=== PATIENT | male | born 1965 | race Caucasian/White ===

== ENCOUNTER 2020-02-04 05:33 | Outpatient (RCR) | payer OTHER ==
[2020-02-04] MEDS ORDERED: CAND32TA8 PO (10:24)
[2020-02-04] MEDS ORDERED: DLT90CCR PO (10:24)
[2020-02-04] MEDS ORDERED: ATOR80TA76 PO (10:24)
== END 2020-02-06 11:38 | disposition home or self-care (01) ==
LOC: PREOP 05:33
PROVIDERS: ATTEND Internal Medicine
DX: Z01.818 Encounter for other preprocedural examination (principal); Z20.828 Contact with and (suspected) exposure to other viral communicable diseases
CPT/HCPCS: 87635

== ENCOUNTER 2020-02-07 07:51 | Day surgery (SDC) | payer OTHER ==
--- NOTE | 2020-01-16 17:06 | HISTORY AND PHYSICAL ---
DATE OF SERVICE: COLONOSCOPY HISTORY AND PHYSICAL HISTORY OF PRESENT ILLNESS: The patient is a 54-year-old white male, who presented for yearly wellness evaluation. Upon report it is noted that his mother of likely colon cancer complications at the age of 74. He had one uncle with colon cancer as well and has not previously had any form of colonoscopic screening. He reports that he feels well except that he has had recurrence of erectile dysfunction. He has a longstanding history of hypertension as well as hyperlipidemia with no known history of vascular disease. He remains active without any anginal symptoms. Denies shortness of breath, chest discomfort or dyspnea on exertion. He has noted no bowel habit change and denies melena or bright red blood per rectum. PAST SURGICAL HISTORY: Significant for left carpal tunnel repair. SOCIAL HISTORY: The patient had a past [id number] smoking history, but quit over 10 years ago with no significant alcohol intake. FAMILY HISTORY: He has 6 sisters with no significant health problems. The oldest is 61. He had one brother, age 59. He has had lumbar fusion and herniated cervical disk and the of the above colon cancer history. PHYSICAL EXAMINATION: GENERAL: Reveals a white male who appears to be in no acute distress. VITAL SIGNS: Blood pressure 130/80, weight was up 4.4 pounds, BMI 25 with a weight of 153 pounds. HEENT: Unremarkable. NECK: Revealed no JVD, adenopathy or bruits. CHEST: Clear to auscultation. CARDIOVASCULAR: Reveals regular rate and rhythm without murmur, S3 or S4. ABDOMEN: Soft, supple without mass, organomegaly or tenderness. EXTREMITIES: Reveal no cyanosis, clubbing or edema. ASSESSMENT AND PLAN: 1. Hypertension, under good control. 2. Erectile dysfunction. After discussing options, we will try sildenafil and for cost consideration 20 mg generic 2 to 5 tabs 1 to 4 hours before sexual relations. Expectations were discussed. Side effects were discussed. 3. The patient is being set up for screening colonoscopy higher than average risk considering mother apparently of complications from colon cancer at the age of 70. We will have him follow up in 6 months for routine follow up. We did review the patient's blood work, cholesterol numbers were improved on Lipitor, triglyceride level was down to 283 from 380 with an HDL of 44 and LDL of 34 with total cholesterol of 135 and unremarkable chemistry panel. Job ID: [id number] DocumentID: [id number] Dictated Date: 01/13/2020 17:14:37 First Aid Instructor Date: 01/13/2020 18:08:24 Dictated By: TU DU MD MTDD
[~2020-02-07 07:51] MED LIST: ATOR80TA76 PO; CAND32TA8 PO; DLT90CCR PO
[2020-02-07] MEDS ORDERED: LIDOCAINE JELLY 2% 6 ML SYRINGE MM PRN (08:00)
[2020-02-07] MEDS ORDERED: LACTATED RINGERS 1,000 ML IV ONE (08:00)
[2020-02-07] MEDS ORDERED: LACTATED RINGERS 1,000 ML IV STA (08:00)
[2020-02-07 08:05] VITALS: BP 119/86
--- NOTE | 2020-02-07 08:42 | Pre-Op Note & Conscious Sedat ---
Pre-Operative Progress Note H&P Reviewed The H&P was reviewed, patient examined and no changes noted. Date H&P Reviewed: Feb 07, 2020 Time H&P Reviewed: 08:41 Conscious Sedation Pre-Proced ASA Score 2 For ASA 3 and 4: Consider anesthesia and medical clearance. Also, for patients with a history of failed moderate sedation consider anesthesia. Airway Lungs Heart ASA score ASA 1: a normal healthy patient ASA 2: a patient with a mild systemic disease (mid diabetes, controlled hypertension, obesity ASA 3: a patient with a severe systemic disease that limits activity (angina, COPD, prior Myocardial infarction) ASA 4: a patient with an incapacitating disease that is a constant threat to life (CHF, renal failure) ASA 5: a moribund patient not expected to survive 24 hrs. (ruptured aneurysm) ASA 6: a declared brain- patient whose organs are being harvested. For emergent operations, add the letter E after the classification Mallampati Classification Grade 1 Sedation Plan Analgesia, Amnesia, Plan communicated to team members, Discussed options with patient/fam, Discussed risks with patient/fam The patient is an appropriate candidate to undergo the planned procedure, sedation, and anesthesia. The patient immediately re-assessed prior to indication. TU DU MD Feb 07, 2020 08:42
[2020-02-07] MEDS ORDERED: MIDAZOLAM 2 MG/2 ML (VERSED) VIAL ONE (09:00)
[2020-02-07] MEDS ORDERED: proPOfol 200 MG/20 ML (DIPRIVAN) VIAL IV ONE (09:00)
[2020-02-07] MEDS ORDERED: LIDOCAINE JELLY 2% 6 ML SYRINGE ONE (09:05)
[2020-02-07 09:50] VITALS: BP 88/61
[2020-02-07 10:45] VITALS: BP 120/85
--- NOTE | 2020-02-07 10:57 | Anesthesia-General Post-Op ---
MAC Patient Condition Mental Status/LOC: Same as Preop Cardiovascular: Satisfactory Nausea/Vomiting: Absent Respiratory: Satisfactory Pain: Controlled Complications: Absent Post Op Complications Complications None Follow Up Care/Instructions Patient Instructions None needed. Anesthesiology Discharge Order Discharge Order Patient was seen after the procedure and he was doing well, no complaints, stable vital signs, no apparent adverse anesthesia problems. PREETHI SOLORIO DO Feb 07, 2020 10:57
[2020-02-07 11:34] VITALS: BP 120/85
--- OUTSIDE RECORDS SUMMARY | 2020-02-07 11:57 | XMS REPORT | Continuity of Care Document ---
Author Organization Unknown Address Unknown Phone Unavailable Allergies Active Description Code Type Severity Reaction Onset Reported/Identified Relationship to Patient Clinical Status Yes No Known Drug Allergies [id number] Drug Allergy Unknown N/A 02/04/2020 Medications There is no data. Problems There is no data. Procedures There is no data. Results Test Result Range Coronavirus SARS-CoV-2 SO 2018 - 0 08:10 Coronavirus Ab [Units/volume] in Serum Negative Negative Encounters ACCT No. Visit Date/Time Discharge Status Pt. Type Provider Facility Loc./Unit Complaint [id number] 02/07/2020 10:30:00 P EN Preadmit TU DU MD [facility] ENDO SCREENING [id number] 02/04/2020 05:33:[address] Outpatient TU DU MD [facility] PREOP COLONOSCOPY
--- NOTE | 2020-02-07 20:55 | OPERATIVE REPORT ---
DATE OF SERVICE: COLONOSCOPY SUMMARY INDICATION FOR THE PROCEDURE: Screening. DESCRIPTION OF PROCEDURE: The patient was placed in the left lateral decubitus position. Prior to undergoing colonoscopy, digital rectal evaluation was performed. Anal sphincter tone was normal. The perianal reflexes intact. Prostate is normal size, anodular, nontender to digital inspection. No abnormalities were noted to digital inspection of anal canal or distal rectal vault. The colonoscope was then inserted into the rectum and under direct visualization advanced to the cecum. The cecum was identified by identification of the ileocecal valve and cecal strap. Photographic documentation was obtained. Careful inspection was made as colonoscope withdrawn. Quality of prep was good. FINDINGS: There was no evidence for internal or external hemorrhoids and the rectum was unremarkable. Several small sigmoid diverticulum were present without evidence of diverticulitis. The descending colon, splenic flexure and transverse colon were unremarkable. A diminutive polyp was noted measuring about 1 x 2 mm in size noted in hepatic flexure. It was removed via cold forceps with no significant blood loss. The ascending colon and cecum were unremarkable. ASSESSMENT: Diminutive polyp was removed via cold forceps from the hepatic flexure. The patient had mild sigmoid diverticular disease without evidence for diverticulitis. No other abnormalities noted on today's colonoscopy. Prostate was unremarkable to digital inspection. Job ID: [id number] DocumentID: [id number] Dictated Date: 02/07/2020 11:28:53 Senior Mechanical Design Engineer Date: 02/07/2020 20:54:27 Dictated By: TU DU MD
== END 2020-02-07 11:15 | disposition home or self-care (01) ==
LOC: ENDO 07:51
PROVIDERS: ATTEND Internal Medicine
DX: Z12.11 Encounter for screening for malignant neoplasm of colon (principal); D12.3 Benign neoplasm of transverse colon; K57.30 Diverticulosis of large intestine without perforation or abscess without bleeding; K21.9 Gastro-esophageal reflux disease without esophagitis; I10 Essential (primary) hypertension; E78.5 Hyperlipidemia, unspecified; N52.9 Male erectile dysfunction, unspecified; Z79.899 Other long term (current) drug therapy; Z87.891 Personal history of nicotine dependence; Z80.0 Family history of malignant neoplasm of digestive organs
CPT/HCPCS: 88305